=== PATIENT | female | born 1965 | race Caucasian/White ===

== ENCOUNTER 2023-04-13 19:08 | Emergency (ER) | payer OTHER ==
[2023-04-13 19:33] VITALS: BP 127/86; PULSE 110; RESP 20; TEMP 99; BMI 42.4
[2023-04-13] MEDS ORDERED: ALBUTEROL SO4 2.5/IPRATROPIUM 0.5 INH SOL 3 ML VIAL.NEB. NEB ONE ×4 (19:59→21:45)
[2023-04-13] MEDS ORDERED: SODIUM CHLORIDE 500 ML IV STA (20:01)
[2023-04-13] MEDS ORDERED: SODIUM CHLORIDE 1,000 ML IV STA (20:15)
[2023-04-13 20:28] LABS: HEMATOCRIT 46.4 % (32.4-45.2); HEMOGLOBIN 15.3 G/dL (10.7-15.3); MCH 27.1 pg (25.7-33.7); MEAN CELL VOLUME 82.3 fl (80-96); PLATELET COUNT 187.8 10^3/uL (134-434); RBC 5.64 10^6/uL (3.60-5.2); RDW 14.9 % (11.6-15.6); WHITE BLOOD COUNT 8.2 10^3/uL (4.0-10.8)
[2023-04-13 20:39] LABS: BILIRUBIN,TOTAL 0.6 mg/dl (0.2-1); CALCIUM 9.2 mg/dl (8.5-10); CREATININE 0.6 mg/dl (0.55-1.3); POTASSIUM 3.8 mmol/L (3.5-5.1); TOT PROT 7.5 g/dl (6.4-8.2); URIC ACID 5.5 mg/dl (2.6-7.2)
[2023-04-13 20:45] LABS: PLATELET ESTIMATE ADEQUATE
== END 2023-04-13 23:01 | disposition home or self-care (01) ==
LOC: FER 19:08
PROC: 3E0F7GC Introduction of Other Therapeutic Substance into Respiratory Tract, Via Natural or Artificial Opening (ICD-10-PCS; principal; 2023-04-13)
PROC: 3E0F7GC Introduction of Other Therapeutic Substance into Respiratory Tract, Via Natural or Artificial Opening (ICD-10-PCS; 2023-04-13)
PROC: 3E0337Z Introduction of Electrolytic and Water Balance Substance into Peripheral Vein, Percutaneous Approach (ICD-10-PCS; 2023-04-13)
DX: R05.9 Cough, unspecified (principal); M79.672 Pain in left foot; R07.89 Other chest pain; J40 Bronchitis, not specified as acute or chronic
CPT/HCPCS: 36415; 71046-TC-FY; 73630-TC-LT; 80053; 82962; 84484; 84550; 85027; 99284-25